=== PATIENT | male | born 1955 | race Caucasian/White ===

== ENCOUNTER 2024-12-19 07:19 | Emergency (ER) | payer MEDICARE, SELFPAY ==
[2024-12-19 07:30] VITALS: BP 176/105; PULSE 77; RESP 17; TEMP 37; O2SAT 99; BMI 26.4
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
[2024-12-19] MEDS: tetanus-dipt-pertussis 0.5 mL SDV IM (07:47)
--- NOTE | 2024-12-19 08:01 | PC.NURSE ---
[facility] GRAINING MACHINE OPERATOR OFFICE NOTIFIED OF DOG BITE. VERBAL INSTRUCTIONS FOR PATIENT TO CALL THE GRAINING MACHINE OPERATOR IF HE WANTED TO GO FURTHER WITH THE REPORT. PATIENT NOTIFIED AND VERBALIZED UNDERSTANDING.
[2024-12-19] MEDS: rabies vaccine 2.5 unit SDV IM (08:09)
[2024-12-19] MEDS: rabies IG 300 unit/mL SDV 1 mL 1710 UNIT IM (08:26)
[2024-12-19 08:35] VITALS: BP 176/105; PULSE 68; O2SAT 99
== END 2024-12-19 08:36 | disposition home or self-care (01) ==
PROVIDERS: Emergency Provider Family Medicine; PCP Family Medicine
DX: S71.152A Open bite, left thigh, initial encounter (principal); W54.0XXA Bitten by dog, initial encounter; J44.9 Chronic obstructive pulmonary disease, unspecified; F17.210 Nicotine dependence, cigarettes, uncomplicated; Z29.14 Encounter for prophylactic rabies immune globulin; Z23 Encounter for immunization
CPT/HCPCS: 90375; 90471; 90675; 90715; 96372; 99283